=== PATIENT | female | born 1970 | race Caucasian/White ===

== ENCOUNTER 2018-08-15 11:45 | Emergency (ER) | payer SELFPAY ==
[2018-08-15] MEDS ORDERED: KETOROLAC 30 MG/ML INJ ONE (12:32)
[2018-08-15] MEDS ORDERED: CYCLOBENZAPRINE 10 MG TAB ONE (12:32)
--- NOTE | 2018-08-15 13:16 | RAD REPORT ---
EXAM DESCRIPTION: RAD - Lumbar Spine 3 Views - 08/15/2018 1:08 pm CLINICAL HISTORY: RADICULOPATHY Radiculopathy COMPARISON: LUMBAR SPINE SINGLE dated 04/28/2008; LUMBAR SPINE 3 VIEWS dated 03/08/2006 FINDINGS: Vertebral body heights appear maintained. No compression fracture noted. Disc spaces are m aintained. Moderate upper lumbar dextroscoliosis is present. Moderate degenerative facet hypertrophy lower lumbar levels. IMPRESSION: Moderate upper lumbar dextroscoliosis. Moderate lower lumbar facet hypertrophy.
--- NOTE | 2018-08-15 14:18 | ER ---
Nurse's Notes [facility] Name: Estefany Eduardo Age: 48 yrs Sex: Female : 1970 Arrival Date: 08/15/2018 Time: 11:49 Bed 24 Private MD: None, None Diagnosis: Sciatica, right side;Low back pain Presentation: 08/15 12:08 Presenting complaint: Patient states: right flank/back pain that radiates to the RLE x sv 3 days, denies injury or dysuria. Transition of care: patient was not received from another setting of care. Onset of symptoms was August 12, 2018. Care prior to arrival: None. 12:08 Method Of Arrival: Ambulatory sv 12:08 Acuity: DAIJA 4 sv 12:30 Risk Assessment: Do you want to hurt yourself or someone else? Patient reports no ls4 desire to harm self or others. Initial Sepsis Screen: Does the patient meet any 2 criteria? No. Patient's initial sepsis screen is negative. Does the patient have a suspected source of infection? No. Patient's initial sepsis screen is negative. Triage Assessment: 12:27 General: Appears uncomfortable, Behavior is cooperative, anxious. Pain: Complains of ls4 pain in right low back Pain currently is 7 out of 10 on a pain scale. Cardiovascular: No deficits noted. Respiratory: No deficits noted. GI: No deficits noted. : No deficits noted. Derm: No deficits noted. Musculoskeletal: Circulation, motion, and sensation intact. Capillary refill < 3 seconds, Range of motion: intact in all extremities, Swelling absent. 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 - Social history:: Smoking status: Patient/guardian denies using tobacco, never smoked. - Ebola Screening: : Patient negative for fever greater than or equal to 101.5 degrees Fahrenheit, and additional compatible Ebola Virus Disease symptoms Patient denies exposure to infectious person Patient denies travel to an Ebola-affected area in the 21 days before illness onset No symptoms or risks identified at this time. Screenin:28 Abuse screen: Denies threats or abuse. Denies injuries from another. Nutritional ls4 screening: No deficits noted. Tuberculosis screening: No symptoms or risk factors identified. Fall Risk None identified. Assessment: 12:28 General: see triage assessment . ls4 13:30 Reassessment: Patient and/or family updated on plan of care and expected duration. Pain ls4 level reassessed. Patient is alert, oriented x 3, equal unlabored respirations, skin warm/dry/pink. Vital Signs: 12:09 BP 122 / 80; Pulse 98; Resp 20; Temp 97; Pulse Ox 100% ; Weight 75.3 kg; Height 5 ft. 5 sv in. (165.10 cm); Pain 7/10; 13:32 BP 122 / 82; Pulse 87; Resp 16; Temp 98.2(O); Pulse Ox 100% ; lt1 12:09 Body Mass Index 27.62 (75.30 kg, 165.10 cm) sv ED Course: 11:49 Patient arrived in ED. sb2 11:50 None, None is Private Physician. sb2 11:51 Magdalena Meade FNP-C is [facility]. snw 11:51 Floyd Frias MD is Attending Physician. snw 12:09 Triage completed. sv 12:09 Arm band placed on. sv 12:14 Janine Villarreal, RN is Primary Nurse. ls4 12:28 Patient has correct armband on for positive identification. Bed in low position. Call ls4 light in reach. Side rails up X 1. Warm blanket given. 12:28 No provider procedures requiring assistance completed. Patient did not have IV access ls4 during this emergency room visit. 13:08 Lumbar Spine (3 Views) XRAY In Process Unspecified. EDMS Administered Medications: 12:26 Drug: Flexeril 10 mg Route: PO; ls4 13:02 Follow up: Response: No adverse reaction; Marked relief of symptoms ls4 12:27 Drug: TORadol 60 mg Route: IM; Site: left ventrogluteal; ls4 13:02 Follow up: Response: No adverse reaction; Marked relief of symptoms ls4 Outcome: 14:17 Discharge ordered by . snw 14:37 Discharged to home ambulatory. ls4 14:37 Condition: good 14:37 Discharge instructions given to patient, family, Instructed on discharge instructions, safety practices, Demonstrated understanding of instructions, follow-up care, medications, Prescriptions given X 2. 15:00 Patient left the ED. ls4 Signatures: Dispatcher [employer] Tata Madden, RN RN Magdalena Salazar, OVERHEAD CRANE INSPECTOR-C OVERHEAD CRANE INSPECTOR-Mariew Alice Singh sb2 Janine Villarreal RN RN ls4 Babs Waite lt1 Corrections: (The following items were deleted from the chart) 14:10 14:10 Response: No adverse reaction; Marked relief of symptoms ls4 ls4
--- NOTE | 2018-08-15 14:18 | EDPHYS ---
Physician Documentation [facility] Name: Estefany Eduardo Age: 48 yrs Sex: Female : 1970 Arrival Date: 08/15/2018 Time: 11:49 Bed 24 Private MD: None, None ED Physician Floyd Frias HPI: 08/15 12:24 This 48 yrs old Female presents to ER via Ambulatory with complaints of Flank snw Pain. 12:24 The patient complains of pain in the right low back. The pain radiates to the right snw quadriceps. Onset: The symptoms/episode began/occurred suddenly, 3 day(s) ago, and became persistent. Associated signs and symptoms: The patient has no apparent associated signs or symptoms. Severity of pain: At its worst the pain was moderate severe. The patient has not experienced similar symptoms in the past. The patient has not recently seen a physician. hx of scoliosis. 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 - Social history:: Smoking status: Patient/guardian denies using tobacco, never smoked. - Ebola Screening: : Patient negative for fever greater than or equal to 101.5 degrees Fahrenheit, and additional compatible Ebola Virus Disease symptoms Patient denies exposure to infectious person Patient denies travel to an Ebola-affected area in the 21 days before illness onset No symptoms or risks identified at this time. ROS: 12:22 Constitutional: Negative for fever, chills, and weight loss, Eyes: Negative for injury, snw pain, redness, and discharge, ENT: Negative for injury, pain, and discharge, Neck: Negative for injury, pain, and swelling, Cardiovascular: Negative for chest pain, palpitations, and edema, Respiratory: Negative for shortness of breath, cough, wheezing, and pleuritic chest pain, Abdomen/GI: Negative for abdominal pain, nausea, vomiting, diarrhea, and constipation, Back: Negative for injury and pain, : Negative for injury, bleeding, discharge, and swelling, Skin: Negative for injury, rash, and discoloration, Neuro: Negative for headache, weakness, numbness, tingling, and seizure. 12:22 MS/extremity: Positive for pain, paresthesias, of the right lower back. Exam: 12:21 Constitutional: This is a well developed, well nourished patient who is awake, alert, snw and in no acute distress. Head/Face: Normocephalic, atraumatic. Eyes: Pupils equal round and reactive to light, extra-ocular motions intact. Lids and lashes normal. Conjunctiva and sclera are non-icteric and not injected. Cornea within normal limits. Periorbital areas with no swelling, redness, or edema. ENT: Nares patent. No nasal discharge, no septal abnormalities noted. Tympanic membranes are normal and external auditory canals are clear. Oropharynx with no redness, swelling, or masses, exudates, or evidence of obstruction, uvula midline. Mucous membranes moist. Neck: Trachea midline, no thyromegaly or masses palpated, and no cervical lymphadenopathy. Supple, full range of motion without nuchal rigidity, or vertebral point tenderness. No Meningismus. Chest/axilla: Normal chest wall appearance and motion. Nontender with no deformity. No lesions are appreciated. Cardiovascular: Regular rate and rhythm with a normal S1 and S2. No gallops, murmurs, or rubs. Normal PMI, no JVD. No pulse deficits. Respiratory: Lungs have equal breath sounds bilaterally, clear to auscultation and percussion. No rales, rhonchi or wheezes noted. No increased work of breathing, no retractions or nasal flaring. Abdomen/GI: Soft, non-tender, with normal bowel sounds. No distension or tympany. No guarding or rebound. No evidence of tenderness throughout. Back: No spinal tenderness. No costovertebral tenderness. Full range of motion. Skin: Warm, dry with normal turgor. Normal color with no rashes, no lesions, and no evidence of cellulitis. Neuro: Awake and alert, GCS 15, oriented to person, place, time, and situation. Cranial nerves II-XII grossly intact. Motor strength 5/5 in all extremities. Sensory grossly intact. Cerebellar exam normal. Normal gait. Psych: Awake, alert, with orientation to person, place and time. Behavior, mood, and affect are within normal limits. 12:21 Musculoskeletal/extremity: Extremities: all appear grossly normal, with no appreciated pain with palpation, ROM: no acute changes, Circulation is intact in all extremities. Sensation intact. pain shooting down right anterior thigh and constant pain to right low, posterior back/hip Vital Signs: 12:09 BP 122 / 80; Pulse 98; Resp 20; Temp 97; Pulse Ox 100% ; Weight 75.3 kg; Height 5 ft. 5 sv in. (165.10 cm); Pain 7/10; 13:32 BP 122 / 82; Pulse 87; Resp 16; Temp 98.2(O); Pulse Ox 100% ; lt1 12:09 Body Mass Index 27.62 (75.30 kg, 165.10 cm) sv MDM: 12:10 Patient medically screened. [facility] 14:19 Data reviewed: vital signs, nurses notes. Data interpreted: Pulse oximetry: on room air snw is 100 %. Counseling: I had a detailed discussion with the patient and/or guardian regarding: the historical points, exam findings, and any diagnostic results supporting the discharge/admit diagnosis, radiology results, the need for outpatient follow up, to return to the emergency department if symptoms worsen or persist or if there are any questions or concerns that arise at home. Response to treatment: the patient's symptoms have markedly improved after treatment, and as a result, I will discharge patient. Special discussion: Based on the history and exam findings, there is no indication for further emergent testing or inpatient evaluation. I discussed with the patient/guardian the need to see the primary care provider for further evaluation of the symptoms. 08/15 12:17 Order name: Lumbar Spine (3 Views) XRAY; Complete Time: 13:22 snw Administered Medications: 12:26 Drug: Flexeril 10 mg Route: PO; ls4 13:02 Follow up: Response: No adverse reaction; Marked relief of symptoms ls4 12:27 Drug: TORadol 60 mg Route: IM; Site: left ventrogluteal; ls4 13:02 Follow up: Response: No adverse reaction; Marked relief of symptoms ls4 Disposition: 15:52 Co-signature as Attending Physician, Floyd Frias MD I agree with the assessment and [facility] plan of care. Disposition: 08/15/18 14:17 Discharged to Home. Impression: Sciatica, right side, Low back pain. - Condition is Stable. - Discharge Instructions: Back Pain, Adult, Musculoskeletal Pain, Sciatica, Cryotherapy, Rehydration, Adult, Heat Therapy. - Prescriptions for Diclofenac Sodium 75 mg Oral Tablet Sustained Release - take 1 tablet by ORAL route 2 times per day; 30 tablet. orphenadrine citrate 100 mg Oral Tablet Sustained Release - take 1 tablet by ORAL route 2 times per day As needed; 20 tablet. - Work release form, Medication Reconciliation Form, Thank You Letter, Antibiotic Education, Prescription Opioid Use form. - Follow up: Emergency Department; When: As needed; Reason: Worsening of condition. Follow up: Private Physician; When: 2 - 3 days; Reason: Recheck today's complaints, Continuance of care, Re-evaluation by your physician. Signatures: Dispatcher [employer] Tata Madden RN RN Floyd Tee MD MD cha Therrien, Shelly, RELAY ASSOCIATE-C RELAY ASSOCIATE-Csnw Janine Villarreal RN RN ls4 Corrections: (The following items were deleted from the chart) 15:00 14:17 08/15/2018 14:17 Discharged to Home. Impression: Sciatica, right side; Low back ls4 pain. Condition is Stable. Forms are Medication Reconciliation Form, Thank You Letter, Antibiotic Education, Prescription Opioid Use. Follow up: Emergency Department; When: As needed; Reason: Worsening of condition. Follow up: Private Physician; When: 2 - 3 days; Reason: Recheck today's complaints, Continuance of care, Re-evaluation by your physician. snw
[2018-08-15 15:05] VITALS: O2SAT 100
[2018-08-15 15:06] VITALS: BP 122/82; TEMP 98.2
== END 2018-08-15 15:00 | disposition home or self-care (01) ==
LOC: ER 11:45
DX: M54.41 Lumbago with sciatica, right side (principal)
CPT/HCPCS: 72100

== ENCOUNTER 2019-07-03 15:32 | Emergency (ER) | payer SELFPAY ==
[2019-07-03] MEDS ORDERED: METHYLPREDNISOLONE 125 MG INJ ONE (16:13)
[2019-07-03] MEDS ORDERED: LEVALBUTEROL 1.25 MG/3 ML NEB ONE (16:13)
[2019-07-03 16:47] LABS: Absolute Lymphocytes (CBC) 1.9 K/uL (0.7-4.9); Basophils % 0.7 % (0-1.3); Hematocrit 41.2 % (36.0-45.0); Lymphocytes % 31.2 % (15.3-44.8); MPV 7.9 fL (7.6-11.3); RBC Red Blood Cell Count 4.57 M/uL (3.86-4.86)
--- NOTE | 2019-07-03 16:50 | RAD REPORT ---
EXAM DESCRIPTION: RAD - Chest Single View - 07/03/2019 4:31 pm CLINICAL HISTORY: Cough;Dyspnea Chest pain. COMPARISON: Chest Single View dated 08/11/2016; CHEST PA AND LAT 2 VIEW dated 01/10/2014; CHEST SINGLE VIEW dated 03/07/2009; CHEST PA AND LAT 2 VIEW dated 04/28/2008 FINDINGS: Portable technique limits examination quality. The lungs are grossly clear. The heart is normal in size. No displaced fractures. IMPRESSION: No acute intrathoracic process suspected.
[2019-07-03 17:12] LABS: ALT/SGPT 18 U/L (12-78); AST/SGOT 11 U/L (15-37); Albumin 3.4 g/dL (3.4-5.0); Alkaline Phosphatase 83 U/L (45-117); BUN Blood Urea Nitrogen 8 mg/dL (7-18); Bicarbonate 26 mmol/L (21-32); Bilirubin Direct 0.1 mg/dL (0-0.2); Bilirubin Total 0.4 mg/dL (0.2-1.0); Glucose Level 80 mg/dL (74-106); Lipase 49 U/L (73-393); NT PRO-BNP 211 pg/mL (<125); Potassium 3.5 mmol/L (3.5-5.1); Protein, Total 6.4 g/dL (6.4-8.2); Sodium Level 143 mmol/L (136-145); Troponin (Emerg Dept Use Only) < 0.02 ng/mL (0.0-0.045)
--- NOTE | 2019-07-03 18:07 | RAD REPORT ---
EXAM DESCRIPTION: CT - Chest For Pe Angio - 07/03/2019 5:58 pm CLINICAL HISTORY: Chest pain. DYSPNEA COMPARISON: No comparisons TECHNIQUE: CT angiogram of the pulmonary arteries was performed with MIP. All CT scans are performed using dose optimization technique as appropriate and may include automated exposure control or mA/KV adjustment according to patient size. FINDINGS: No evidence of pulmonary thromboembolism. No acute aortic finding demonstrated. Mild diffuse COPD is present. No significant pericardial or pleural fluid. No concerning bony finding. A prominent hiatal hernia is present. IMPRESSION: No evidence of pulmonary thromboembolism. Mild COPD. Prominent hiatal hernia.
--- NOTE | 2019-07-03 18:25 | EDPHYS ---
Physician Documentation [facility] Name: Estefany Eduardo Age: 49 yrs Sex: Female : 1970 Arrival Date: 07/03/2019 Time: 15:33 Bed 18 Private MD: ED Physician Devaughn Mcmillan HPI: 07/03 16:05 This 49 yrs old Female presents to ER via Ambulatory with complaints of rn Shortness Of Breath, Chest Congestion. 16:05 The patient has shortness of breath at rest, with light activity. Onset: The rn symptoms/episode began/occurred 8 week(s) ago. Duration: The symptoms are intermittent. The patient's shortness of breath is aggravated by nothing, is alleviated by nothing. Severity of symptoms: At their worst the symptoms were mild in the emergency department the symptoms are unchanged. The patient has experienced similar episodes in the past. Reports cough, sob, for 8 weeks, worse over last few days, no fever, now having abd cramping and diarrhea. + nausea. Reports took amoxicillin for upper respiratory infection 2 weeks ago and did nothing for cough. No blood in stool. . 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 - Social history:: Smoking status: Patient uses tobacco products, smokes one pack cigarettes per day. - Ebola Screening: : Patient denies travel to an Ebola-affected area in the 21 days before illness onset. - Family history:: not pertinent. - Hospitalizations: : No recent hospitalization is reported. ROS: 16:05 Constitutional: Negative for fever, chills, and weight loss, Eyes: Negative for injury, rn pain, redness, and discharge, Neck: Negative for injury, pain, and swelling, Cardiovascular: Negative for chest pain, palpitations, and edema, Respiratory: Negative for wheezing, and pleuritic chest pain Abdomen/GI: Negative for constipation MS/Extremity: Negative for injury and deformity, Skin: Negative for injury, rash, and discoloration, Neuro: Negative for headache, numbness, tingling, and seizure. Exam: 16:05 Constitutional: This is a well developed, well nourished patient who is awake, alert, rn and in no acute distress. Head/Face: Normocephalic, atraumatic. ENT: MMM, no stridor Cardiovascular: Regular rhythm, tachycardic, no murmur Respiratory: Clear bilateral breath osunds with faint end exp wheezing, no retractions Abdomen/GI: soft, non-tender MS/ Extremity: Pulses equal, no cyanosis. Neurovascular intact. Full, normal range of motion. Equal circumference. Neuro: Awake and alert, GCS 15, oriented to person, place, time, and situation. Cranial nerves II-XII grossly intact. Motor strength 5/5 in all extremities. Sensory grossly intact. Vital Signs: 15:48 BP 131 / 99; Pulse 101; Resp 20; Temp 98.8; Pulse Ox 100% on R/A; Weight 72.57 kg (R); aj1 Height 5 ft. 5 in. (165.10 cm) (R); Pain 3/10; 16:47 BP 113 / 57; Pulse 95; Resp 36; Pulse Ox 99% ; sv 17:30 BP 151 / 87; Pulse 106; Resp 34; Temp 97.5(O); Pulse Ox 99% ; sv 18:44 BP 145 / 80; Pulse 101; Resp 21; Pulse Ox 100% ; sv 15:48 Body Mass Index 26.63 (72.57 kg, 165.10 cm) aj1 MDM: 15:53 Patient medically screened. rn 18:22 Differential diagnosis: Anxiety Reaction Chronic Obstructive Pulmonary Disease rn pneumonia, Pneumothorax Pulmonary Embolism reactive airway disease. Data reviewed: vital signs, nurses notes, lab test result(s), EKG, radiologic studies, CT scan, plain films, and as a result, I will discharge patient. Test interpretation: by ED physician or midlevel provider: ECG, plain radiologic studies, CXR neg for pneumonia/pneumothorax. Counseling: I had a detailed discussion with the patient and/or guardian regarding: the historical points, exam findings, and any diagnostic results supporting the discharge/admit diagnosis, lab results, radiology results, the need for outpatient follow up, to return to the emergency department if symptoms worsen or persist or if there are any questions or concerns that arise at home. Special discussion: I discussed with the patient/guardian in detail that at this point there is no indication for admission to the hospital. It is understood, however, that if the symptoms persist or worsen the patient needs to return immediately for re-evaluation. ED course: Pt feels much better, improved vitals, most likely new COPD diagnosis, offered observation given new diagnosis, patient wants to go home, had long discussion regarding importance of quitting smoking and understands risks if she continues. Will dc home with inhaler and steroids, urged her to f/u with pulmonology for testing/diagnosis/and daily therapy prescriptions. CT chest neg for PE.. 07/03 16:03 Order name: BMP; Complete Time: 17:27 rn 12 16:03 Order name: CBC with Diff; Complete Time: 16:51 rn 07/03 16:03 Order name: Hepatic Function; Complete Time: 17:27 rn 07/03 16:03 Order name: Lipase; Complete Time: 17:27 rn 07/03 16:03 Order name: NT PRO-BNP; Complete Time: 17:27 rn 07/03 16:03 Order name: XRAY CXR (1 view); Complete Time: 16:54 rn 07/03 16:03 Order name: Troponin (emerg Dept Use Only); Complete Time: 17:27 rn 07/03 16:03 Order name: Flu; Complete Time: 17:09 rn 07/03 16:03 Order name: Strep; Complete Time: 17:09 rn 07/03 17:02 Order name: Throat Culture EDAK 07/03 17:35 Order name: CT Chest For PE Angio; Complete Time: 18:28 rn 07/03 16:03 Order name: EKG; Complete Time: 16:04 rn 07/03 16:03 Order name: Cardiac monitoring; Complete Time: 16:39 rn 07/03 16:03 Order name: EKG - Nurse/Tech; Complete Time: 16:39 rn 07/03 16:03 Order name: IV Saline Lock; Complete Time: 16:24 rn 07/03 16:03 Order name: Labs collected and sent; Complete Time: 16:25 rn 07/03 16:03 Order name: O2 Per Protocol; Complete Time: 16:25 rn 07/03 16:03 Order name: O2 Sat Monitoring; Complete Time: 16:25 rn Administered Medications: 16:24 Drug: SOLU-Medrol 125 mg Route: IVP; Site: right antecubital; sv 16:49 Follow up: Response: No adverse reaction sv 16:24 Drug: Xopenex (3) 1.25 mg Route: Inhalation; sv Disposition: 07/03/19 18:24 Discharged to Home. Impression: Chronic obstructive pulmonary disease with (acute) exacerbation. - Condition is Stable. - Discharge Instructions: Chronic Bronchitis, Chronic Obstructive Pulmonary Disease, How to Use an Inhaler. - Prescriptions for Prednisone 20 mg Oral Tablet - take 3 tablet by ORAL route once daily for 5 days; 15 tablet. Zithromax Z- Axel 250 mg Oral Tablet - take 1 tablet by ORAL route as directed for 5 days Day 1 - take two (2) tablets one time. Day 2, 3, 4 , 5 take one (1) tablet once daily.; 6 tablet. Albuterol Sulfate 90 mcg/actuation - inhale 1-2 puff by INHALATION route every 4-6 hours; 1 Inhaler. - Medication Reconciliation Form, Thank You Letter, Antibiotic Education, Prescription Opioid Use form. - Follow up: Elliot Hebert MD; When: 1 week; Reason: Recheck today's complaints, Re-evaluation by your physician. - Problem is new. - Symptoms have improved. Signatures: Dispatcher [employer] [facility] Shiela French RN RN aj1 Tata Spain RN RN Devaughn Mcmillan MD MD qa intern: (The following items were deleted from the chart) 16:09 16:04 BLOOD CULTURE*+[id number].BRZ ordered. [facility] 18:46 18:24 07/03/2019 18:24 Discharged to Home. Impression: Chronic obstructive pulmonary sv disease with (acute) exacerbation. Condition is Stable. Forms are Medication Reconciliation Form, Thank You Letter, Antibiotic Education, Prescription Opioid Use. Follow up: Elliot Hebert; When: 1 week; Reason: Recheck today's complaints, Re-evaluation by your physician. Problem is new. Symptoms have improved. rn
--- NOTE | 2019-07-03 18:25 | ER ---
Nurse's Notes [facility] Name: Estefany Eduardo Age: 49 yrs Sex: Female : 1970 Arrival Date: 07/03/2019 Time: 15:33 Bed 18 Private MD: Diagnosis: Chronic obstructive pulmonary disease with (acute) exacerbation Presentation: 07/03 15:46 Presenting complaint: Patient states: "I've had diarrhea for 4 days, but I had this aj1 cough for 8 weeks. I've been sick at my stomach the last few days.I have fever off and on" Patient also reports chest pain, shortness of breath. Transition of care: patient was not received from another setting of care. Onset of symptoms was 2018. Risk Assessment: Do you want to hurt yourself or someone else? Patient reports no desire to harm self or others. Initial Sepsis Screen: Does the patient meet any 2 criteria? HR > 90 bpm. No. Patient's initial sepsis screen is negative. Does the patient have a suspected source of infection? Yes: Productive cough/pneumonia. Care prior to arrival: None. 15:46 Method Of Arrival: Ambulatory aj 15:46 Acuity: DAIJA 3 aj1 Triage Assessment: 15:48 General: Appears in no apparent distress. comfortable, Behavior is calm, cooperative, aj1 appropriate for age. Pain: Complains of pain in chest Pain currently is 3 out of 10 on a pain scale. Neuro: Level of Consciousness is awake, alert, obeys commands. Cardiovascular: Patient's skin is warm and dry. Respiratory: Reports shortness of breath cough that is hacking, persistent Onset: The symptoms/episode began/occurred today. 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 - Social history:: Smoking status: Patient uses tobacco products, smokes one pack cigarettes per day. - Ebola Screening: : Patient denies travel to an Ebola-affected area in the 21 days before illness onset. - Family history:: not pertinent. - Hospitalizations: : No recent hospitalization is reported. Screenin:15 Abuse screen: Denies threats or abuse. Denies injuries from another. Nutritional sv screening: No deficits noted. Tuberculosis screening: No symptoms or risk factors identified. Fall Risk None identified. Assessment: 16:15 General: Appears in no apparent distress. uncomfortable, well developed, Behavior is sv cooperative, appropriate for age, anxious. Pain: Complains of pain in chest Pain currently is 3 out of 10 on a pain scale. Is continuous. Neuro: Level of Consciousness is awake, alert, obeys commands, Oriented to person, place, time, situation, Moves all extremities. Full function Gait is steady. Cardiovascular: Patient's skin is warm and dry. Rhythm is sinus tachycardia. Respiratory: Reports shortness of breath on exertion cough that is non-productive, Airway is patent Respiratory effort is even, unlabored, Respiratory pattern is symmetrical, tachypnea. Derm: Skin is pink, warm \\T\\ dry. 17:30 Reassessment: Patient appears in no apparent distress at this time. No changes from sv previously documented assessment. Patient and/or family updated on plan of care and expected duration. Pain level reassessed. Patient is alert, oriented x 3, equal unlabored respirations, skin warm/dry/pink. 18:46 Reassessment: Patient appears in no apparent distress at this time. No changes from sv previously documented assessment. Patient and/or family updated on plan of care and expected duration. Pain level reassessed. Patient states symptoms have improved. Vital Signs: 15:48 BP 131 / 99; Pulse 101; Resp 20; Temp 98.8; Pulse Ox 100% on R/A; Weight 72.57 kg (R); aj1 Height 5 ft. 5 in. (165.10 cm) (R); Pain 3/10; 16:47 BP 113 / 57; Pulse 95; Resp 36; Pulse Ox 99% ; sv 17:30 BP 151 / 87; Pulse 106; Resp 34; Temp 97.5(O); Pulse Ox 99% ; sv 18:44 BP 145 / 80; Pulse 101; Resp 21; Pulse Ox 100% ; sv 15:48 Body Mass Index 26.63 (72.57 kg, 165.10 cm) aj1 ED Course: 15:33 Patient arrived in ED. as 15:48 Triage completed. aj1 15:49 Arm band placed on Patient placed in an exam room. aj1 15:53 Devaughn Mcmillan MD is Attending Physician. rn 16:09 Tata Spain, PAPO is Primary Nurse. sv 16:15 Patient has correct armband on for positive identification. Placed in gown. Bed in low sv position. Call light in reach. Side rails up X2. telemetry monitor on. Pulse ox on. NIBP on. Door closed. Warm blanket given. Head of bed elevated. 16:15 Initial lab(s) drawn, by me, sent to lab. Inserted saline lock: 20 gauge in right sv antecubital area, using aseptic technique. Blood collected. Flushed right antecubital with 5 ml normal saline. 16:33 XRAY CXR (1 view) In Process Unspecified. EDMS 16:34 EKG done, by ED staff, reviewed by Devaughn Mcmillan MD. 3 17:37 Throat Culture Sent. sv 17:59 CT Chest For PE Angio In Process Unspecified. EDMS 18:24 Elliot Hebert MD is Referral Physician. rn 18:45 No provider procedures requiring assistance completed. IV discontinued, intact, sv bleeding controlled, No redness/swelling at site. Pressure dressing applied. Administered Medications: 16:24 Drug: SOLU-Medrol 125 mg Route: IVP; Site: right antecubital; sv 16:49 Follow up: Response: No adverse reaction sv 16:24 Drug: Xopenex (3) 1.25 mg Route: Inhalation; sv Outcome: 18:24 Discharge ordered by MD. rn 18:45 Discharged to home ambulatory. sv 18:45 Condition: stable 18:45 Condition: improved 18:45 Discharge instructions given to patient, Instructed on discharge instructions, follow up and referral plans. medication usage, Demonstrated understanding of instructions, follow-up care, medications, Prescriptions given X 3. 18:46 Patient left the ED. sv Signatures: Dispatcher [employer] EDMS Shiela French RN RN ajTata Mohan, Minnie Almendarez RN, Roman, MD MD rn Herrera, [facility] Corrections: (The following items were deleted from the chart) 18:45 17:30 BP 151 / 87; Pulse 106bpm; Resp 34bpm; Pulse Ox 99%; sv sv
[2019-07-03 19:50] VITALS: TEMP 97.5
[2019-07-03 19:52] VITALS: BP 145/80; O2SAT 100
--- NOTE | 2019-07-04 05:29 | EKG ---
Test Date: 2019-07-03 Test Time: 16:34:18 [employer]utter Gas: JOSSE MEASUREMENT RESULTS: Intervals: Rate: 86 GA: 162 QRSD: 78 QT: 402 QTc: 481 [place]: P: 48 GA: 162 QRS: 29 T: 36 INTERPRETIVE STATEMENTS: Normal sinus rhythm Prolonged QT Abnormal ECG Compared to ECG 06/28/2014 21:00:34 Prolonged QT interval now present Electronically Signed On 07-04-19 05:28:48 FUEL SYSTEM MAINTENANCE SUPERVISOR by Tres Buckley
== END 2019-07-03 18:46 | disposition home or self-care (01) ==
LOC: ER 15:32
DX: J44.1 Chronic obstructive pulmonary disease with (acute) exacerbation (principal); F32.9 Major depressive disorder, single episode, unspecified; F17.210 Nicotine dependence, cigarettes, uncomplicated
CPT/HCPCS: 36415; 71045; 71275; 80048; 80076; 83690; 83880; 84484; 85025; 87070; 87081; 87804; 93005; 96374; 99285; J2930

== ENCOUNTER 2019-09-11 14:58 | Emergency (ER) | payer SELFPAY ==
[2019-09-11] MEDS ORDERED: NA CHLORIDE 0.9% 1,000 ML ONE (15:49)
[2019-09-11] MEDS ORDERED: ONDANSETRON 4 MG/2 ML VIAL ONE (15:49)
[2019-09-11] MEDS ORDERED: MORPHINE 4 MG/ML SYR ONE (15:49)
[2019-09-11 15:51] LABS: Absolute Lymphocytes (CBC) 1.5 K/uL (0.7-4.9); Basophils % 0.9 % (0-1.3); Hematocrit 42.5 % (36.0-45.0); Lymphocytes % 26.8 % (15.3-44.8); MPV 8.1 fL (7.6-11.3)
[2019-09-11 16:13] LABS: Albumin 3.7 g/dL (3.4-5.0); Bilirubin Direct 0.1 mg/dL (0-0.2); Bilirubin Total 0.3 mg/dL (0.2-1.0); Potassium 3.7 mmol/L (3.5-5.1); Protein, Total 6.5 g/dL (6.4-8.2)
--- NOTE | 2019-09-11 16:44 | RAD REPORT ---
EXAM DESCRIPTION: CTAbdomen Pelvis W Contrast - 09/11/2019 4:35 pm CLINICAL HISTORY: Abdominal pain. ABD PAIN COMPARISON: Abdomen Pelvis W Contrast dated 10/07/2016 TECHNIQUE: Biphasic CT imaging of the abdomen and pelvis was performed with 100 ml non-ionic IV cont rast. All CT scans are performed using dose optimization technique as appropriate and may include automated exposure control or mA/KV adjustment according to patient size. FINDINGS: The lung bases are clear. The liver, spleen, pancreas, adrenal glands and kidneys are within normal limits. 5 mm cyst left kidn ey. No bowel obstruction, free air, free fluid or abscess. The appendix is normal. No evidence of signi ficant lymphadenopathy. No suspicious bony findings. IMPRESSION: No acute intra-abdominal or pelvic finding.
--- NOTE | 2019-09-11 17:19 | ER ---
Nurse's Notes [facility] Name: Estefany Eduardo Age: 49 yrs Sex: Female : 1970 Arrival Date: 09/11/2019 Time: 15:01 Bed 19 Private MD: Diagnosis: Unspecified abdominal pain Presentation: 09/11 15:13 Presenting complaint: RLQ pain that radiates to right groin x 2 days. Pt reports N/V/D hb last week, diarrhea currently. Denies fever. Transition of care: patient was not received from another setting of care. Onset of symptoms was September 06, 2019. Risk Assessment: Do you want to hurt yourself or someone else? Patient reports no desire to harm self or others. Initial Sepsis Screen: Does the patient meet any 2 criteria? No. Patient's initial sepsis screen is negative. Does the patient have a suspected source of infection? No. Patient's initial sepsis screen is negative. Care prior to arrival: Medication(s) given: Aleve at 0300. 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 - Coronavirus screen:: The patient has NOT traveled to [place] in the past 14 days. The patient has NOT had contact with known/suspected case of Coronavirus? Proceed with normal triage procedures. - Social history:: Smoking status: Patient reports the use of cigarette tobacco products, smokes one-half pack cigarettes per day. - Ebola Screening: : No symptoms or risks identified at this time. Screenin:19 Abuse screen: Denies threats or abuse. Denies injuries from another. Nutritional ca1 screening: No deficits noted. Tuberculosis screening: No symptoms or risk factors identified. Fall Risk IV access (20 points). Assessment: 15:19 General: Appears in no apparent distress. comfortable, Behavior is calm, cooperative, ca1 appropriate for age. Pain: Complains of pain in right lower quadrant Pain does not radiate. Pain currently is 7 out of 10 on a pain scale. Quality of pain is described as crampy, Pain began 2-3 days ago. Is continuous. Neuro: Level of Consciousness is awake, alert, obeys commands, Oriented to person, place, time, situation, Appropriate for age. Cardiovascular: Heart tones S1 S2 present Capillary refill < 3 seconds Patient's skin is warm and dry. Respiratory: Airway is patent Respiratory effort is even, unlabored, Respiratory pattern is regular, symmetrical, Breath sounds are clear bilaterally. GI: Abdomen is flat, non-distended, Bowel sounds present X 4 quads. Abd is soft X 4 quads Abdomen is tender to palpation in right lower quadrant Reports diarrhea, nausea. : No deficits noted. No signs and/or symptoms were reported regarding the genitourinary system. EENT: No deficits noted. No signs and/or symptoms were reported regarding the EENT system. Derm: Skin is intact, is healthy with good turgor, Skin is pink, warm \T\ dry. Musculoskeletal: Circulation, motion, and sensation intact. Capillary refill < 3 seconds. 15:57 Reassessment: Patient appears in no apparent distress at this time. No changes from ca1 previously documented assessment. Patient and/or family updated on plan of care and expected duration. Pain level reassessed. Patient is alert, oriented x 3, equal unlabored respirations, skin warm/dry/pink. 16:55 Reassessment: Patient appears in no apparent distress at this time. No changes from ca1 previously documented assessment. Patient and/or family updated on plan of care and expected duration. Pain level reassessed. Patient is alert, oriented x 3, equal unlabored respirations, skin warm/dry/pink. 17:30 Reassessment: Patient appears in no apparent distress at this time. Patient and/or ca1 family updated on plan of care and expected duration. Pain level reassessed. Patient is alert, oriented x 3, equal unlabored respirations, skin warm/dry/pink. Vital Signs: 15:14 BP 122 / 89; Pulse 82; Resp 16; Temp 97.2; Pulse Ox 100% on R/A; Weight 76.66 kg; hb Height 5 ft. 5 in. (165.10 cm); Pain 8/10; 15:57 BP 103 / 68; Pulse 70; Resp 16 S; Pulse Ox 95% on R/A; ca1 16:55 BP 97 / 55; Pulse 63; Resp 16 S; Pulse Ox 97% on R/A; ca1 17:30 BP 105 / 75; Pulse 71; Resp 16 S; Pulse Ox 100% on R/A; ca1 15:14 Body Mass Index 28.12 (76.66 kg, 165.10 cm) hb ED Course: 15:01 Patient arrived in ED. ag5 15:14 Triage completed. hb 15:14 Arm band placed on. hb 15:16 Charu Tavera RN is Primary Nurse. ca1 15:19 Kelvin Love NP is PHCP. pm1 15:19 Frank Carpio MD is Attending Physician. pm1 15:19 Attending Physician role handed off by Frank Carpio MD sean 15:19 Floyd Frias MD is Attending Physician. sean 15:19 Patient has correct armband on for positive identification. Placed in gown. Bed in low ca1 position. Call light in reach. Side rails up X 1. Pulse ox on. NIBP on. Warm blanket given. 15:19 No provider procedures requiring assistance completed. ca1 15:36 Initial lab(s) drawn, by pr, sent to lab. Inserted saline lock: 22 gauge in right ca1 antecubital area, using aseptic technique. Blood collected. 17:43 IV discontinued, intact, bleeding controlled, No redness/swelling at site. Pressure ca1 dressing applied. Administered Medications: 15:45 Drug: Zofran 4 mg Route: IVP; Site: right antecubital; ca1 17:08 Follow up: Response: No adverse reaction; Nausea is decreased ca1 15:50 Drug: NS 0.9% 1000 ml Route: IV; Rate: 1000 ml; Site: right antecubital; ca1 17:08 Follow up: Response: No adverse reaction; IV Status: Completed infusion ca1 15:50 Drug: morphine 4 mg {Note: RASS - 0.} Route: IVP; Site: right antecubital; ca1 17:08 Follow up: Response: No adverse reaction; Pain is decreased; RASS: Alert and Calm (0) ca1 Outcome: 17:18 Discharge ordered by . pm1 17:43 Discharged to home ambulatory. ca1 17:43 Condition: stable 17:43 Discharge instructions given to patient, Instructed on discharge instructions, follow up and referral plans. no drinking with medication, no driving heavy equipment, medication usage, Demonstrated understanding of instructions, follow-up care, medications, Prescriptions given X 1. 17:44 Patient left the ED. ca1 Signatures: Floyd Frias MD MD cha Marinas, Patrick, LÓPEZ VOCATIONAL CASE MANAGER pm1 Patsy Beltran, RN RN Charu Tavera RN RN ca1 Konstantin Ray ag5 Corrections: (The following items were deleted from the chart) 15:22 15:19 GI: Abdomen is flat, non-distended, Bowel sounds present X 4 quads. Abd is soft X ca1 4 quads Abdomen is tender to palpation in right lower quadrant ca1
--- NOTE | 2019-09-11 17:20 | EDPHYS ---
Physician Documentation [facility] Name: Estefany Eduardo Age: 49 yrs Sex: Female : 1970 Arrival Date: 09/11/2019 Time: 15:01 Bed 19 Private MD: ED Physician Floyd Frias HPI: 09/11 16:40 This 49 yrs old Female presents to ER via Ambulatory with complaints of pm1 Abdominal Pain. 16:40 The patient presents with abdominal pain right lower quadrant. Onset: The pm1 symptoms/episode began/occurred 2 day(s) ago. The symptoms radiate to right femoral area. Associated signs and symptoms: Pertinent positives: diarrhea, Pertinent negatives: chest pain, constipation, dysuria, fever, nausea, shortness of breath, vomiting. The symptoms are described as sharp. Modifying factors: The symptoms are alleviated by nothing, the symptoms are aggravated by walking, palpation. Severity of pain: in the emergency department the pain is unchanged. The patient has not experienced similar symptoms in the past. The patient has been recently seen by a physician: the patient's primary care provider, earlier today, with similar presenting complaints, and was sent to the [facility] Emergency Department for further evaluation. 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 - Coronavirus screen:: The patient has NOT traveled to [place] in the past 14 days. The patient has NOT had contact with known/suspected case of Coronavirus? Proceed with normal triage procedures. - Social history:: Smoking status: Patient reports the use of cigarette tobacco products, smokes one-half pack cigarettes per day. - Ebola Screening: : No symptoms or risks identified at this time. ROS: 16:42 Constitutional: Negative for fever, chills, and weight loss, Cardiovascular: Negative pm1 for chest pain, palpitations, and edema, Respiratory: Negative for shortness of breath, cough, wheezing, and pleuritic chest pain. 16:42 Back: Negative for injury and pain, : Negative for injury, bleeding, discharge, and swelling, MS/Extremity: Negative for injury and deformity, Skin: Negative for injury, rash, and discoloration, Neuro: Negative for headache, weakness, numbness, tingling, and seizure. 16:42 Abdomen/GI: Positive for abdominal pain, diarrhea, Negative for nausea, vomiting. Exam: 16:42 Constitutional: This is a well developed, well nourished patient who is awake, alert, pm1 and in no acute distress. Head/Face: Normocephalic, atraumatic. Chest/axilla: Normal chest wall appearance and motion. Nontender with no deformity. No lesions are appreciated. Cardiovascular: Regular rate and rhythm with a normal S1 and S2. No gallops, murmurs, or rubs. No pulse deficits. Respiratory: Lungs have equal breath sounds bilaterally, clear to auscultation and percussion. No rales, rhonchi or wheezes noted. No increased work of breathing, no retractions or nasal flaring. 16:42 Back: No spinal tenderness. No costovertebral tenderness. Full range of motion. Skin: Warm, dry with normal turgor. Normal color with no rashes, no lesions, and no evidence of cellulitis. MS/ Extremity: Pulses equal, no cyanosis. Neurovascular intact. Full, normal range of motion. 16:42 Abdomen/GI: Inspection: abdomen appears normal, Bowel sounds: normal, Palpation: abdomen is soft and non-tender, in the right upper quadrant, left upper quadrant, right lower quadrant and left lower quadrant, mild abdominal tenderness, in the right femoral area, mass, is not appreciated, rebound tenderness, is not appreciated. 16:42 Neuro: Orientation: is normal, Motor: is normal, moves all fours. Vital Signs: 15:14 BP 122 / 89; Pulse 82; Resp 16; Temp 97.2; Pulse Ox 100% on R/A; Weight 76.66 kg; hb Height 5 ft. 5 in. (165.10 cm); Pain 8/10; 15:57 BP 103 / 68; Pulse 70; Resp 16 S; Pulse Ox 95% on R/A; ca1 16:55 BP 97 / 55; Pulse 63; Resp 16 S; Pulse Ox 97% on R/A; ca1 17:30 BP 105 / 75; Pulse 71; Resp 16 S; Pulse Ox 100% on R/A; ca1 15:14 Body Mass Index 28.12 (76.66 kg, 165.10 cm) hb MDM: 15:19 Patient medically screened. sean 16:45 Data reviewed: vital signs. Data interpreted: Pulse oximetry: on room air is 95 %. pm1 Interpretation: normal. 17:13 Differential diagnosis: appendicitis, cholecystitis, Cholelithiasis, diverticulitis, pm1 non-specific abd pain, pancreatitis, Pyelonephritis, Ureterolithiasis, urinary tract infection. 17:13 Counseling: I had a detailed discussion with the patient and/or guardian regarding: the pm1 historical points, exam findings, and any diagnostic results supporting the discharge/admit diagnosis, lab results, radiology results, the need for outpatient follow up, to return to the emergency department if symptoms worsen or persist or if there are any questions or concerns that arise at home. 09/11 15:22 Order name: Basic Metabolic Panel pm1 09/11 15:22 Order name: CBC with Diff pm1 09/11 15:22 Order name: Creatinine for Radiology pm1 09/11 15:22 Order name: Hepatic Function pm09/11 15:22 Order name: Lipase pm1 09/11 15:59 Order name: CBC with Automated Diff; Complete Time: 16:05 EDMS 09/11 15:22 Order name: CT Abd/Pelvis - IV Contrast Only pm1 09/11 16:11 Order name: Creatinine (Radiology Only); Complete Time: 16:17 EDMS 09/11 16:16 Order name: Basic Metabolic Panel; Complete Time: 16:17 EDMS 09/11 16:16 Order name: Liver (Hepatic) Function; Complete Time: 16:17 EDMS 09/11 16:16 Order name: Lipase; Complete Time: 16:17 EDMS 09/11 17:22 Order name: CT; Complete Time: 17:24 EDMS 09/11 15:22 Order name: IV Saline Lock; Complete Time: 15:51 pm09/11 15:22 Order name: Labs collected and sent; Complete Time: 15:51 pm09/11 15:22 Order name: Urine Dipstick-Ancillary (obtain specimen); Complete Time: 15:50 pm1 Administered Medications: 15:45 Drug: Zofran 4 mg Route: IVP; Site: right antecubital; ca1 17:08 Follow up: Response: No adverse reaction; Nausea is decreased ca1 15:50 Drug: NS 0.9% 1000 ml Route: IV; Rate: 1000 ml; Site: right antecubital; ca1 17:08 Follow up: Response: No adverse reaction; IV Status: Completed infusion ca1 15:50 Drug: morphine 4 mg {Note: RASS - 0.} Route: IVP; Site: right antecubital; ca1 17:08 Follow up: Response: No adverse reaction; Pain is decreased; RASS: Alert and Calm (0) ca1 Disposition: 09/12 11:10 Co-signature as Attending Physician, Kelvin Love NP I agree with the assessment and tw4 plan of care. Disposition: 09/11/19 17:18 Discharged to Home. Impression: Unspecified abdominal pain. - Condition is Stable. - Discharge Instructions: Abdominal Pain, Adult, Muscle Strain. - Prescriptions for Tylenol- Codeine #3 300-30 mg Oral Tablet - take 2 tablets by ORAL route every 6 hours As needed; 20 tablet. - Medication Reconciliation Form, Thank You Letter, Antibiotic Education, Prescription Opioid Use form. - Follow up: Emergency Department; When: As needed; Reason: Worsening of condition. Follow up: Private Physician; When: 2 - 3 days; Reason: Recheck today's complaints, Continuance of care, Re-evaluation by your physician. - Problem is new. - Symptoms have improved. Signatures: Dispatcher [employer] EDFloyd Albarado MD MD cha Marinas, Patrick, NP FISH BUTCHER pm1 Patsy Beltran, PAPO RN Frank Carpio MD MD tw4 Charu Tavera RN RN ca1 Corrections: (The following items were deleted from the chart) 09/11 17:44 17:18 09/11/2019 17:18 Discharged to Home. Impression: Unspecified abdominal pain. ca1 Condition is Stable. Forms are Medication Reconciliation Form, Thank You Letter, Antibiotic Education, Prescription Opioid Use. Follow up: Emergency Department; When: As needed; Reason: Worsening of condition. Follow up: Private Physician; When: 2 - 3 days; Reason: Recheck today's complaints, Continuance of care, Re-evaluation by your physician. Problem is new. Symptoms have improved. pm1
[2019-09-11 19:32] VITALS: TEMP 97.2
[2019-09-11 19:37] VITALS: BP 105/75; O2SAT 100
== END 2019-09-11 17:44 | disposition home or self-care (01) ==
LOC: ER 14:58
DX: R10.31 Right lower quadrant pain (principal); F32.9 Major depressive disorder, single episode, unspecified; F17.210 Nicotine dependence, cigarettes, uncomplicated
CPT/HCPCS: 36415; 74177; 80048; 80076; 83690; 85025; 96361; 96374; 96375; 99284; J2405; J7030; Q9967

== ENCOUNTER 2024-01-17 11:54 | Emergency (ER) | payer SELFPAY ==
--- NOTE | 2024-01-17 13:12 | RAD REPORT ---
EXAM DESCRIPTION: RAD - Wrist Right 3 View - 01/17/2024 12:53 pm CLINICAL HISTORY: Right wrist pain status post injury FINDINGS: The distal capitate has an unusual appearance. A fracture line is not seen. Presumably thi s is the sequela of old trauma or a normal variant. An acute fracture is doubtful. This should be cor related clinically. If the patient has point tenderness in this region then CT could be obtained. Otherwise, no fracture or dislocation noted
--- NOTE | 2024-01-17 13:13 | RAD REPORT ---
EXAM DESCRIPTION: RAD - Forearm Right - 01/17/2024 12:53 pm CLINICAL HISTORY: Right arm pain status post fall FINDINGS: No fracture is seen involving right radius/ulna
[2024-01-17] MEDS ORDERED: HYDROCODONE/APAP 10/325 TAB ONE (14:03)
--- NOTE | 2024-01-17 14:16 | ER ---
Nurse's Notes [facility] Name: Estefany Eduardo Age: 53 yrs Sex: Female : 1970 Arrival Date: 01/17/2024 Time: 11:54 Bed 11 Private MD: Diagnosis: Pain in right wrist Presentation: 01/16 12:12 Chief complaint: Patient states: Tripped and fell yesterday, reports pain to right jl7 wrist. Coronavirus screen: At this time, the client does not indicate any symptoms associated with coronavirus-19. Ebola Screen: No symptoms or risks identified at this time. Initial Sepsis Screen: Does the patient meet any 2 criteria? No. Patient's initial sepsis screen is negative. Does the patient have a suspected source of infection? No. Patient's initial sepsis screen is negative. Risk Assessment: Do you want to hurt yourself or someone else? Patient reports no desire to harm self or others. Onset of symptoms was January 16, 2024. 12:12 Method Of Arrival: Ambulatory jl7 12:12 Acuity: DAIJA 4 jl7 Triage Assessment: 12:14 General: Appears in no apparent distress. uncomfortable, Behavior is calm, cooperative, jl7 appropriate for age. Pain: Complains of pain in right wrist Pain currently is 7 out of 10 on a pain scale. Musculoskeletal: Swelling absent. Injury Description: pain to right wrist. 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 - Infectious Disease History:: Denies. - Social history:: Smoking status: Patient reports the use of cigarette tobacco products, smokes one-half pack cigarettes per day. - Family history:: not pertinent. Screenin:36 [facility] ED Fall Risk Assessment (Adult) History of falling in the last 3 months, as6 including since admission Yes- single mechanical fall (1 pt) Confusion or Disorientation No (0 pts) Intoxicated or Sedated No (0 pts) Impaired Gait No (0 pts) Mobility Assist Device Used No (0 pt) Altered Elimination No (0 pt) Score/Fall Risk Level 0 - 2 = Low Risk Oriented to surroundings, Maintained a safe environment, Educated pt \T\ family on fall prevention, incl call for assistance when getting out of bed, Assessed \T\ reinforced patient's understanding of fall precautions. Abuse screen: Denies threats or abuse. Denies injuries from another. Nutritional screening: No deficits noted. Tuberculosis screening: No symptoms or risk factors identified. Assessment: 12:11 Reassessment: Dr. Blair in triage assessing pt. jl7 14:37 Reassessment: Patient appears in no apparent distress at this time. Patient and/or as6 family updated on plan of care and expected duration. Pain level reassessed. Patient is alert, oriented x 3, equal unlabored respirations, skin warm/dry/pink. Patient states feeling better. Vital Signs: 12:12 BP 121 / 80; Pulse 81; Resp 17; Temp 98; Pulse Ox 100% ; Weight 67.59 kg; Height 5 ft. jl7 5 in. ; Pain 7/10; 14:35 BP 109 / 78; Pulse 79; Resp 18; Pulse Ox 97% ; as6 12:12 Body Mass Index 24.79 (67.59 kg, 165.1 cm) jl7 12:12 Pain Scale: Adult jl7 ED Course: 11:55 Patient arrived in ED. rg4 11:56 Geoffrey Blair MD is Attending Physician. rt 12:13 Triage completed. jl7 12:14 Arm band placed on right wrist. Patient placed in waiting room, Patient notified of jl7 wait time. 12:54 Wrist Right 3 View XRAY In Process Unspecified. EDMS 12:54 Forearm Right XRAY In Process Unspecified. EDMS 14:36 Bed in low position. Call light in reach. Provided Education on: follow up. as6 14:36 No provider procedures requiring assistance completed. Patient did not have IV access as6 during this emergency room visit. Velcro wrist splint applied to right wrist. Administered Medications: 14:08 Drug: [place] PO 10 mg-325 mg 1 tabs PO once Route: PO; as6 14:35 Follow up: Response: No adverse reaction as6 Medication: 14:37 VIS not applicable for this client. as6 Outcome: 14:15 Discharge ordered by . rt 14:36 Discharged to home ambulatory, as6 14:36 Condition: stable 14:36 Discharge instructions given to patient, Instructed on discharge instructions, follow up and referral plans. medication usage, Demonstrated understanding of instructions, follow-up care, medications, Prescriptions given X 1, 14:37 Patient left the ED. as6 Signatures: Dispatcher [employer] Kia Krause4 Quyen Salmeron RN RN jl7 Carlos Zheng RN RN as6 Geoffrey Blair MD MD rt Corrections: (The following items were deleted from the chart) 12:14 12:13 PSHx: None; george vazquez
--- NOTE | 2024-01-17 14:16 | EDPHYS ---
Physician Documentation [facility] Name: Estefany Eduardo Age: 53 yrs Sex: Female : 1970 Arrival Date: 01/17/2024 Time: 11:54 Bed 11 Private MD: ED Physician Geoffrey Blair HPI: 01/16 12:42 This 53 yrs old Female presents to ER via Ambulatory with complaints of Wrist Injury. rt 12:42 Patient presents to the ED with trip and fall onto outstretched right hand. This rt happened last night. Patient reports continued pain, bruising to the wrist. Denies pain to the hand, elbow, upper arm. Denies other injury, acute complaints, symptoms are aching nature, nonradiating, moderate severity, no other aggravating or alleviating factors.. 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 - Infectious Disease History:: Denies. - Social history:: Smoking status: Patient reports the use of cigarette tobacco products, smokes one-half pack cigarettes per day. - Family history:: not pertinent. ROS: 12:42 Constitutional: Negative for fever, chills, and weight loss, Neck: Negative for injury, rt pain, and swelling, Skin: Negative for injury, rash, and discoloration, Neuro: Negative for headache, weakness, numbness, tingling, and seizure, 12:42 MS/extremity: Positive for contusion, pain, Exam: 12:42 Constitutional: This is a well developed, well nourished patient who is awake, alert, rt and in no acute distress. Head/Face: Normocephalic, atraumatic. Neck: Trachea midline, no thyromegaly or masses palpated, and no cervical lymphadenopathy. Supple, full range of motion without nuchal rigidity, or vertebral point tenderness. No Meningismus. Skin: Warm, dry with normal turgor. Normal color with no rashes, no lesions, and no evidence of cellulitis. Neuro: Awake and alert, GCS 15, oriented to person, place, time, and situation. Cranial nerves II-XII grossly intact. Motor strength 5/5 in all extremities. Sensory grossly intact. Cerebellar exam normal. Normal gait. Psych: Awake, alert, with orientation to person, place and time. Behavior, mood, and affect are within normal limits. 12:42 Musculoskeletal/extremity: Snuffbox tenderness to the right wrist, tenderness diffusely throughout the wrist, mild bruising noted proximally, no deformities noted, pulses, motor, sensation intact. Vital Signs: 12:12 BP 121 / 80; Pulse 81; Resp 17; Temp 98; Pulse Ox 100% ; Weight 67.59 kg; Height 5 ft. jl7 5 in. ; Pain 7/10; 14:35 BP 109 / 78; Pulse 79; Resp 18; Pulse Ox 97% ; as6 12:12 Body Mass Index 24.79 (67.59 kg, 165.1 cm) jl7 12:12 Pain Scale: Adult jl7 MDM: 12:16 Patient medically screened. rt 17:40 Differential diagnosis: Fracture, contusion, sprain. Data reviewed: vital signs, nurses rt notes, radiologic studies. Independent interpretation of the following test(s) in the Emergency Department X-Ray: My interpretation is No acute fracture seen on interpretation of x-ray images. Test considered but Not performed: CT: Discussed x-ray findings with the patient, she elects to be splinted, to follow-up as compared to get acute CT scan. Believe that this is reasonable at this time.. Counseling: I had a detailed discussion with the patient and/or guardian regarding the historical points, exam findings, and any diagnostic results supporting the discharge/admit diagnosis, radiology results, the need for outpatient follow up, to return to the emergency department if symptoms worsen or persist or if there are any questions or concerns that arise at home. Response to treatment: the patient's symptoms have markedly improved after treatment. 01/16 12:17 Order name: Wrist Right 3 View XRAY; Complete Time: 13:19 rt 01/16 12:17 Order name: Forearm Right XRAY; Complete Time: 13:19 rt 01/16 14:15 Order name: Thumb Spica Splint; Complete Time: 14:35 rt Administered Medications: 14:08 Drug: [place] PO 10 mg-325 mg 1 tabs PO once Route: PO; as6 14:35 Follow up: Response: No adverse reaction as6 Disposition Summary: 01/17/24 14:15 Discharge Ordered Notes: Location: Home rt Problem: new rt Symptoms: have improved rt Condition: Stable rt Diagnosis - Pain in right wrist rt Followup: rt - With: Private Physician - When: 5 - 6 days - Reason: Discharge Instructions: - Discharge Summary Sheet rt - Wrist Pain, Adult rt Forms: - Work release form rt - Medication Reconciliation Form rt - Antibiotic Education rt - Prescription Opioid Use rt - Patient Portal Instructions rt - Leadership Thank You Letter rt Prescriptions: - Tramadol 50 mg Oral tablet - take 1 tablet ORAL route every 8 hours as needed; 15 tablet; Refills: 0, rt Product Selection Permitted Signatures: Dispatcher [employer] Quyen Farrell RN RN jl7 Carlos Zheng RN RN as6 Geoffrey Blair MD MD rt Corrections: (The following items were deleted from the chart) 12:14 12:13 PSHx: None; george jl7
[2024-01-17 21:09] VITALS: BP 109/78; TEMP 98; O2SAT 97
== END 2024-01-17 14:37 | disposition home or self-care (01) ==
LOC: ER 11:54
DX: M25.531 Pain in right wrist (principal)
CPT/HCPCS: 99283

== ENCOUNTER 2024-12-14 15:39 | Emergency (ER) | payer SELFPAY ==
--- NOTE | 2024-12-14 17:12 | RAD REPORT ---
EXAMINATION: XR RIGHT KNEE CLINICAL INDICATION: Female, 54 years old. PAIN TECHNIQUE: Multiple views of the right knee were obtained. COMPARISON: No prior exam. FINDINGS: Mild medial compartment space narrowing is present. No fracture, dislocation or aggressive marrow lesion observed.
--- NOTE | 2024-12-14 17:48 | EDPHYS ---
Physician Documentation [facility] Name: Estefany Eduardo Age: 54 yrs Sex: Female : 1970 Arrival Date: 12/14/2024 Time: 15:39 Bed 14 Private MD: ED Physician Floyd Frias HPI: 12/14 17:44 This 54 yrs old Female presents to ER via Ambulatory with complaints of Leg sean Pain. 17:44 The patient presents with decreased range of motion, pain, that is acute. The sean complaints affect the right knee. 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 - Infectious Disease History:: Denies. - Social history:: Smoking status: Patient reports the use of cigarette tobacco products, smokes one-half pack cigarettes per day. ROS: 17:45 Constitutional: Negative for fever, chills, and weight loss, Eyes: Negative for injury, sean pain, redness, and discharge, ENT: Negative for injury, pain, and discharge, Neck: Negative for injury, pain, and swelling, Cardiovascular: Negative for chest pain, palpitations, and edema, Respiratory: Negative for shortness of breath, cough, wheezing, and pleuritic chest pain, Abdomen/GI: Negative for abdominal pain, nausea, vomiting, diarrhea, and constipation, Back: Negative for injury and pain, : Negative for injury, bleeding, discharge, and swelling, Skin: Negative for injury, rash, and discoloration, Neuro: Negative for headache, weakness, numbness, tingling, and seizure, Psych: Negative for depression, anxiety, suicide ideation, homicidal ideation, and hallucinations, Allergy/Immunology: Negative for hives, rash, and allergies, Endocrine: Negative for neck swelling, polydipsia, polyuria, polyphagia, and marked weight changes, Hematologic/Lymphatic: Negative for swollen nodes, abnormal bleeding, and unusual bruising, 17:45 MS/extremity: Positive for decreased range of motion, pain, tenderness, of the right knee, Exam: 17:45 Constitutional: This is a well developed, well nourished patient who is awake, alert, sean and in no acute distress. Head/Face: Normocephalic, atraumatic. Eyes: Pupils equal round and reactive to light, extra-ocular motions intact. Lids and lashes normal. Conjunctiva and sclera are non-icteric and not injected. Cornea within normal limits. Periorbital areas with no swelling, redness, or edema. ENT: Nares patent. No nasal discharge, no septal abnormalities noted. Tympanic membranes are normal and external auditory canals are clear. Oropharynx with no redness, swelling, or masses, exudates, or evidence of obstruction, uvula midline. Mucous membranes moist. Neck: Trachea midline, no thyromegaly or masses palpated, and no cervical lymphadenopathy. Supple, full range of motion without nuchal rigidity, or vertebral point tenderness. No Meningismus. Chest/axilla: Normal chest wall appearance and motion. Nontender with no deformity. No lesions are appreciated. Cardiovascular: Regular rate and rhythm with a normal S1 and S2. No gallops, murmurs, or rubs. Normal PMI, no JVD. No pulse deficits. Respiratory: Lungs have equal breath sounds bilaterally, clear to auscultation and percussion. No rales, rhonchi or wheezes noted. No increased work of breathing, no retractions or nasal flaring. Abdomen/GI: Soft, non-tender, with normal bowel sounds. No distension or tympany. No guarding or rebound. No evidence of tenderness throughout. Back: No spinal tenderness. No costovertebral tenderness. Full range of motion. Skin: Warm, dry with normal turgor. Normal color with no rashes, no lesions, and no evidence of cellulitis. Neuro: Awake and alert, GCS 15, oriented to person, place, time, and situation. Cranial nerves II-XII grossly intact. Motor strength 5/5 in all extremities. Sensory grossly intact. Cerebellar exam normal. Normal gait. Psych: Awake, alert, with orientation to person, place and time. Behavior, mood, and affect are within normal limits. 17:45 Musculoskeletal/extremity: ROM: limited active range of motion, limited passive range of motion, limited active range of motion due to pain, limited passive range of motion due to pain, Circulation is intact in all extremities. Sensation intact. Compartment Syndrome exam of affected extremity: is normal. Weight bearing: is unable to bear weight, DVT Exam: no swelling, negative Homans' sign noted on exam, no appreciated bluish discoloration, no erythema, no increased warmth, pain, tenderness, Vital Signs: 16:06 BP 146 / 87; Pulse 80; Resp 16; Temp 97.4; Pulse Ox 100% ; Weight 64.86 kg; Height 5 ll1 ft. 5 in. ; Pain 8/10; 16:06 Body Mass Index 23.80 (64.86 kg, 165.1 cm) ll1 16:06 Pain Scale: Adult ll1 MDM: 15:53 Medical Screening Exam initiated [facility] 12/14 16:20 Order name: Knee Right 3 View XRAY; Complete Time: 17:42 [facility] 12/14 17:42 Order name: Crutches; Complete Time: 18:17 [facility] 12/14 17:42 Order name: Knee Immobilizer; Complete Time: 18:17 [facility] Administered Medications: 18:25 Drug: Ibuprofen PO 600 mg PO once Route: PO; ap3 18:43 Follow up: Response: No adverse reaction; Pain is decreased ap3 18:25 Drug: Hydrocodone-Acetaminophen PO (7.5 mg-325 mg) 1 tabs PO once Route: PO; ap3 18:43 Follow up: Response: No adverse reaction; Pain is decreased ap3 18:25 Drug: Dexamethasone PO 10 mg PO once Route: PO; ap3 18:43 Follow up: Response: No adverse reaction ap3 Disposition Summary: 12/14/24 17:48 Discharge Ordered Notes: Location: Home sean Problem: new sean Symptoms: have improved sean Condition: Stable sean Diagnosis - Pain in right knee sean - Osteoarthritis of knee, unspecified sean Followup: sean - With: Private Physician - When: 2 - 3 days - Reason: Recheck today's complaints, Continuance of care, Re-evaluation by your physician Followup: sean - With: Benji Cha MD - When: 2 - 3 days - Reason: Recheck today's complaints, Re-evaluation by your physician Discharge Instructions: - Discharge Summary Sheet sean - Joint Pain sean - Arthritis sean - How to Use a Knee Brace sean - Musculoskeletal Pain sean - Osteoarthritis sean - Acute Knee Pain, Adult sean - How to Use Cold Therapy, [id number] sean Forms: - Medication Reconciliation Form sean - Antibiotic Education sean - Prescription Opioid Use sean - Patient Portal Instructions sean - Leadership Thank You Letter sean - Work release form [email or web address] Prescriptions: - diclofenac sodium 50 mg Oral tablet, delayed release (enteric coated) - take 1 tablet ORAL route 3 times per day; 21 tablet; Refills: 0, Product [facility] Selection Permitted - Tylenol-Codeine #3 300mg-30mg Oral tablet - take 1 tablet ORAL route every 4 hours As needed; 16 tablet; Refills: 0, [facility] Product Selection Permitted - Dexamethasone 4mg Oral tablet - take 1 tablet ORAL route daily for 4 days; 4 tablet; Refills: 0, Product [facility] Selection Permitted Signatures: Dispatcher [employer] Floyd Mcmullen MD MD cha Prokisch, Amanda RN RN ap3 Elinor Bowser RN RN ll1
--- NOTE | 2024-12-14 17:48 | ER ---
Nurse's Notes [facility] Name: Estefany Eduardo Age: 54 yrs Sex: Female : 1970 Arrival Date: 12/14/2024 Time: 15:39 Bed 14 Private MD: Diagnosis: Pain in right knee;Osteoarthritis of knee, unspecified Presentation: 12/14 16:06 Chief complaint: Patient states: R knee pain /swelling since Wednesday. Coronavirus ll1 screen: Client denies travel out of the [place] in the last 14 days. At this time, the client does not indicate any symptoms associated with coronavirus-19. Ebola Screen: Patient denies travel to an Ebola-affected area in the 21 days before illness onset. Initial Sepsis Screen: Does the patient meet any 2 criteria? No. Patient's initial sepsis screen is negative. Does the patient have a suspected source of infection? No. Patient's initial sepsis screen is negative. Risk Assessment: Do you want to hurt yourself or someone else? Patient reports no desire to harm self or others. Onset of symptoms was December 09, 2024. 16:06 Method Of Arrival: Ambulatory ll1 16:06 Acuity: DAIJA 4 ll1 Triage Assessment: 16:06 General: Appears uncomfortable, Behavior is calm, cooperative, appropriate for age. ll1 Pain: Complains of pain in R knee Quality of pain is described as aching, throbbing. Musculoskeletal: Reports pain in R knee. 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 - Infectious Disease History:: Denies. - Social history:: Smoking status: Patient reports the use of cigarette tobacco products, smokes one-half pack cigarettes per day. Screenin:26 [facility] ED Fall Risk Assessment (Adult) History of falling in the last 3 months, ap3 including since admission No falls in past 3 months (0 pts) Confusion or Disorientation No (0 pts) Intoxicated or Sedated No (0 pts) Impaired Gait No (0 pts) Mobility Assist Device Used No (0 pt) Altered Elimination No (0 pt) Score/Fall Risk Level 0 - 2 = Low Risk Oriented to surroundings, Maintained a safe environment, Educated pt \T\ family on fall prevention, incl call for assistance when getting out of bed, Assessed \T\ reinforced patient's understanding of fall precautions, Hourly rounding (assess needs \T\ fall precautionary measures) done, Used ambulatory aids as needed (educated on \T\ assisted with). Abuse screen: Denies threats or abuse. Nutritional screening: No deficits noted. Tuberculosis screening: No symptoms or risk factors identified. Assessment: 18:25 General: Appears in no apparent distress. Behavior is calm, cooperative, appropriate ap3 for age. Pain: Complains of pain in right leg. Pain: Pain currently is 8 out of 10 on a pain scale. Neuro: Level of Consciousness is awake, alert, obeys commands, Oriented to person, place, time, situation, Appropriate for age. Cardiovascular: Patient's skin is warm and dry. Respiratory: Airway is patent Respiratory effort is even, unlabored, Respiratory pattern is regular, symmetrical. Musculoskeletal: Range of motion: intact in all extremities. Vital Signs: 16:06 BP 146 / 87; Pulse 80; Resp 16; Temp 97.4; Pulse Ox 100% ; Weight 64.86 kg; Height 5 ll1 ft. 5 in. ; Pain 8/10; 16:06 Body Mass Index 23.80 (64.86 kg, 165.1 cm) ll1 16:06 Pain Scale: Adult ll1 ED Course: 15:43 Patient arrived in ED. gl 15:44 Arm band placed on. ll1 15:53 Floyd Frias MD is Attending Physician. sean 16:07 Triage completed. ll1 17:09 Knee Right 3 View XRAY In Process Unspecified. EDMS 17:46 Benji Cha MD is Referral Physician. sean 18:26 Patient has correct armband on for positive identification. Bed in low position. Call ap3 light in reach. Side rails up X 1. Provided Education on: crutch walking. Pulse ox on. NIBP on. 18:26 No provider procedures requiring assistance completed. Patient did not have IV access ap3 during this emergency room visit. Administered Medications: 18:25 Drug: Ibuprofen PO 600 mg PO once Route: PO; ap3 18:43 Follow up: Response: No adverse reaction; Pain is decreased ap3 18:25 Drug: Hydrocodone-Acetaminophen PO (7.5 mg-325 mg) 1 tabs PO once Route: PO; ap3 18:43 Follow up: Response: No adverse reaction; Pain is decreased ap3 18:25 Drug: Dexamethasone PO 10 mg PO once Route: PO; ap3 18:43 Follow up: Response: No adverse reaction ap3 Medication: 18:26 VIS not applicable for this client. ap3 Outcome: 17:48 Discharge ordered by MD. estrada 18:44 Discharged to home with crutches, with family, ap3 18:44 Condition: good 18:44 Discharge instructions given to patient, family, Instructed on discharge instructions, follow up and referral plans. medication usage, crutch walking, Demonstrated understanding of instructions, follow-up care, medications, crutch walking, Prescriptions given X 3, 18:44 Patient left the ED. ap3 Signatures: Dispatcher [employer] EDMS Floyd Frias MD MD cha Prokisch, Amanda, RN RN ap3 Elinor Bowser RN RN ll1 Nadiya Norris, Reg Reg gl
[2024-12-14] MEDS ORDERED: dexAMETHasone 10 MG/ML VIAL ONE (18:20)
[2024-12-14] MEDS ORDERED: HYDROCODONE/APAP 7.5/325 MG TAB ONE (18:21)
[2024-12-14] MEDS ORDERED: IBUPROFEN 200 MG TAB PO ONE (18:21)
[2024-12-14 19:26] VITALS: BP 146/87; TEMP 97.4; O2SAT 100
== END 2024-12-14 18:44 | disposition home or self-care (01) ==
LOC: ER 15:39
DX: M17.11 Unilateral primary osteoarthritis, right knee (principal)
CPT/HCPCS: 99284; J1100